=== PATIENT | male | born 1980 | race Caucasian/White ===

== ENCOUNTER → 2022-09-10 | Outpatient (CLI) | payer OTHER | LOC: M PLARAD 07:40 | PROVIDERS: ATTEND Family Medicine | DX: R51.9 Headache, unspecified (principal); M77.12 Lateral epicondylitis, left elbow; M67.822 Other specified disorders of synovium, left elbow; M94.222 Chondromalacia, left elbow; M25.422 Effusion, left elbow ==

== ENCOUNTER 2023-01-05 15:13 | Inpatient (IN) | payer OTHER ==
[~2023-01-05] VITALS: Ht 193 cm; Wt 95.1 kg
[~2023-01-05 15:13] MED LIST: ACET1TAB55 PO; CELE0.09 PO; GABA-282 PO
[2023-01-05] MEDS ORDERED: MED REC IN PROGRESS XX SCH (17:10)
[2023-01-05 17:32] LABS: BASO % 0.3 % (0.0-1.0); EOS # 0.1 10^3/uL (0.0-0.5); EOS % 1.9 % (0.0-3.0); HEMOGLOBIN 12.8 g/dl (13.5-17.5); LYMPH # 1.7 10^3/uL (1.5-5.0); LYMPH % 29.4 % (24.0-44.0); MEAN CORPUSCULAR HEMOGLOBIN 32.2 pg (27.0-33.0); MEAN CORPUSCULAR HGB CONC 33.7 g/dl (32.0-36.5); MEAN CORPUSCULAR VOLUME 95.7 fl (80.0-96.0); MONO # 0.7 10^3/uL (0.0-0.8); MONO % 12.9 % (2.0-8.0); NEUTROPHILS # 3.2 10^3/uL (1.5-8.5); PLATELET COUNT, AUTOMATED 198 10^3/uL (150-450); RED BLOOD COUNT 3.97 10^6/uL (4.30-6.10); WHITE BLOOD COUNT 5.7 10^3/uL (4.0-10.0)
[2023-01-05 17:39] LABS: ERYTHROCYTE SEDIMENTATION RATE 26 mm/hr (0-15)
[2023-01-05 18:01] LABS: BLOOD UREA NITROGEN 20 MG/DL (9-23); CALCIUM LEVEL 8.5 MG/DL (8.5-10.1); CARBON DIOXIDE LEVEL 27 MMOL/L (20-31); CHLORIDE LEVEL 104 MMOL/L (98-107); CREATININE FOR GFR 1.04 MG/DL (0.70-1.30); GLOMERULAR FILTRATION RATE > 60.0 (>60); GLUCOSE, FASTING 85 MG/DL (60-100); POTASSIUM SERUM 4.6 MMOL/L (3.5-5.1); SODIUM LEVEL 137 MMOL/L (136-145)
[2023-01-05 18:13] LABS: RSV AMPLIFICATION NEGATIVE (NEGATIVE)
[2023-01-05] MEDS ORDERED: HOME MED LIST COMPLETE! XX SCH (18:30)
[2023-01-05] MEDS ORDERED: ACETAMINOPHEN TAB 650MG DOSE (2X325MG) PO PRN (19:55)
[2023-01-05] MEDS ORDERED: MORPHINE 2 MG/ML 1ML VIAL IV PRN (19:55)
[2023-01-05] MEDS: NORCO, ANEXSIA 5/325MG TABLET (HYDROcodone/ACETAMINOPHEN) PO PRN (20:39)
[2023-01-06] MEDS: NORCO, ANEXSIA 5/325MG TABLET (HYDROcodone/ACETAMINOPHEN) PO PRN ×3 (05:18→21:51)
[2023-01-06 07:06] LABS: ALBUMIN 3.2 G/DL (3.2-5.2); ALKALINE PHOSPHATASE 76 U/L (46-116); ALT/SGPT 18 U/L (7.0-40); AST/SGOT 16 U/L (<34); BILIRUBIN,TOTAL 0.4 MG/DL (0.3-1.2); BLOOD UREA NITROGEN 18 MG/DL (9-23); CALCIUM LEVEL 8.6 MG/DL (8.5-10.1); CARBON DIOXIDE LEVEL 27 MMOL/L (20-31); CHLORIDE LEVEL 109 MMOL/L (98-107); GLOMERULAR FILTRATION RATE > 60.0 (>60); GLUCOSE, FASTING 96 MG/DL (60-100); MAGNESIUM LEVEL 1.9 MG/DL (1.8-2.4); POTASSIUM SERUM 4.5 MMOL/L (3.5-5.1); SODIUM LEVEL 142 MMOL/L (136-145); TOTAL PROTEIN 5.5 G/DL (5.7-8.2)
[2023-01-06] MEDS ORDERED: ONDANSETRON 4MG 2ML VIAL ONE (11:17)
[2023-01-06] MEDS ORDERED: propofoL 200 MG/20 ML VIAL ONE (11:17)
[2023-01-06] MEDS ORDERED: LIDOCAINE 2% 100MG/5ML SDV (FOR ANES.) ONE (11:17)
[2023-01-06] MEDS ORDERED: MIDAZOLAM INJ 2MG/2ML VIAL ONE (11:18)
[2023-01-06] MEDS ORDERED: fentaNYL 100 MCG/2 ML INJECTION ONE (11:18)
[2023-01-06] MEDS ORDERED: ACETAMINOPHEN 1000MG 100ML IV BAG ONE (11:45)
[2023-01-06] MEDS ORDERED: LIDOCAINE 1% SDV 30ML VIAL As Ordered ONE (12:19)
[2023-01-06] MEDS ORDERED: ceFAZolin 2 GM/D5W 50 ML IV BAG As Ordered ONE (12:19)
[2023-01-06] MEDS ORDERED: LR 1,000 ML IV SCH (12:55)
[2023-01-06] MEDS ORDERED: oxyCODONE 5MG TAB PO PRN (12:55)
[2023-01-06] MEDS ORDERED: ONDANSETRON 4MG 2ML VIAL IV PRN (12:55)
[2023-01-06] MEDS ORDERED: fentaNYL 100 MCG/2 ML INJECTION IV PRN (12:55)
[2023-01-06] MEDS: HYDROMORPHONE HCL 0.5 MG/ 0.5 ML SYRINGE IV PRN ×2 (13:55→14:05)
[2023-01-06 14:49] VITALS: BP 106/53; TEMP 97.6; O2SAT 99
[2023-01-06 15:49] VITALS: BP 112/55; TEMP 96.8; O2SAT 97
[2023-01-06 16:47] VITALS: BP 112/62; TEMP 97.3; O2SAT 96
[2023-01-06 20:10] VITALS: BP 110/58; TEMP 96.8; O2SAT 96
[2023-01-06] MEDS: ceFAZolin SOD 2 GM in IV 1 EA IV SCH (21:22)
[2023-01-07] MEDS: NORCO, ANEXSIA 5/325MG TABLET (HYDROcodone/ACETAMINOPHEN) PO PRN (03:46)
[2023-01-07] MEDS: ceFAZolin SOD 2 GM in IV 1 EA IV SCH ×2 (03:46→11:57)
[2023-01-07 05:15] VITALS: BP 113/64; TEMP 97.6; O2SAT 95
[2023-01-07 07:39] LABS: HEMOGLOBIN 12.8 g/dl (13.5-17.5); MEAN CORPUSCULAR HGB CONC 33.7 g/dl (32.0-36.5); PLATELET COUNT, AUTOMATED 208 10^3/uL (150-450); WHITE BLOOD COUNT 10.3 10^3/uL (4.0-10.0)
[2023-01-07 08:00] VITALS: BP 121/58; TEMP 97.9; O2SAT 97
[2023-01-07 08:00] LABS: BLOOD UREA NITROGEN 10 MG/DL (9-23); CALCIUM LEVEL 8.5 MG/DL (8.5-10.1); CARBON DIOXIDE LEVEL 29 MMOL/L (20-31); CHLORIDE LEVEL 104 MMOL/L (98-107); CREATININE FOR GFR 0.88 MG/DL (0.70-1.30); GLOMERULAR FILTRATION RATE > 60.0 (>60); GLUCOSE, FASTING 99 MG/DL (60-100); SODIUM LEVEL 137 MMOL/L (136-145)
[2023-01-07] MEDS: KETOROLAC 30 MG/ML 1ML VIAL IV PRN ×2 (08:38→17:06)
[2023-01-07] MEDS ORDERED: GABAPENTIN 300 MG CAP PO SCH (09:00)
[2023-01-07] MEDS ORDERED: BACT800T5 PO ×2 (10:20→15:46)
[2023-01-07] MEDS ORDERED: ECOT81TA5 PO (10:23)
[2023-01-07 16:00] VITALS: BP 126/59; TEMP 98.1; O2SAT 99
[2023-01-07] MEDS ORDERED: BACTRIM 160MG/800MG DS TAB PO SCH (16:00)
== END 2023-01-07 17:50 | disposition home or self-care (01) | DRG 857 ==
LOC: M ED 15:13 → M ED INP 19:54 → M PCU 01-06 14:50 → UNDODISIN 01-07 17:19
PROVIDERS: ADMIT Family Medicine; ATTEND Student in an Organized Health Care Education/Training Program
PROC: 0JBH0ZZ Excision of Left Lower Arm Subcutaneous Tissue and Fascia, Open Approach (ICD-10-PCS; principal; 2023-01-06 12:30)
DX: T81.42XA Infection following a procedure, deep incisional surgical site, initial encounter (principal); L03.114 Cellulitis of left upper limb; T81.31XA Disruption of external operation (surgical) wound, not elsewhere classified, initial encounter; M96.842 Postprocedural seroma of a musculoskeletal structure following a musculoskeletal system procedure; Z79.82 Long term (current) use of aspirin; Z79.899 Other long term (current) drug therapy; Z87.891 Personal history of nicotine dependence; B95.61 Methicillin susceptible Staphylococcus aureus infection as the cause of diseases classified elsewhere; Y83.8 Other surgical procedures as the cause of abnormal reaction of the patient, or of later complication, without mention of misadventure at the time of the procedure

== ENCOUNTER → 2023-11-03 | Outpatient (REF) | payer OTHER ==
[~2023-11-03] MED LIST changes: +BACT800T5 PO; +ECOT81TA5 PO
[2023-11-03 19:20] LABS: ALBUMIN 4.1 G/DL (3.2-5.2); BILIRUBIN,DIRECT 0.2 MG/DL (<0.4); BILIRUBIN,TOTAL 0.6 MG/DL (0.3-1.2); TOTAL PROTEIN 6.5 G/DL (5.7-8.2)
== END ==
LOC: M LAB REF 17:11
PROVIDERS: ATTEND Internal Medicine Nephrology
DX: K70.0 Alcoholic fatty liver (principal)

== ENCOUNTER → 2024-04-13 | Outpatient (CLI) | payer OTHER ==
[~2024-04-13] MED LIST changes: +GABA-1172 PO; -GABA-282 PO; +RIZA10TA2
== END ==
LOC: M EKG 09:54
PROVIDERS: ATTEND Otolaryngology
DX: Z01.818 Encounter for other preprocedural examination (principal); G47.30 Sleep apnea, unspecified; R00.1 Bradycardia, unspecified; I44.0 Atrioventricular block, first degree; R94.31 Abnormal electrocardiogram [ECG] [EKG]

== ENCOUNTER → 2024-09-04 | Outpatient (CLI) | payer OTHER ==
[~2024-09-04] MED LIST changes: +FLUTISP; +REFR0.1D OU; +RIZA10TA2 PO
[2024-09-04 10:19] LABS: ALBUMIN 3.7 G/DL (3.2-5.2); BILIRUBIN,DIRECT 0.1 MG/DL (<0.4); BILIRUBIN,TOTAL 0.4 MG/DL (0.3-1.2); TOTAL PROTEIN 6.1 G/DL (5.7-8.2)
== END ==
LOC: M RAD 07:27
PROVIDERS: ATTEND Physician Assistant
DX: R74.8 Abnormal levels of other serum enzymes (principal); R76.8 Other specified abnormal immunological findings in serum; K76.0 Fatty (change of) liver, not elsewhere classified; R16.0 Hepatomegaly, not elsewhere classified